=== PATIENT | male | born 1965 ===

== ENCOUNTER → 2024-08-28 | Day surgery (SDC) | payer OTHER ==
[~2024-08-28] MED LIST: DIPHENHYDRAMINE HCL 50 MG/ML VIAL 1ML IV ONE; MIDAZOLAM HCL 2 MG/2 ML VIAL IV ONE; fentaNYL CITRATE 50 MCG/ML AMPUL IV ONE
== END | disposition home or self-care (01) ==
LOC: ADM 08-22 13:15 → AMB-ENDOS 06:36
PROVIDERS: ATTEND Surgery
DX: D12.4 Benign neoplasm of descending colon (principal); K57.30 Diverticulosis of large intestine without perforation or abscess without bleeding; K63.5 Polyp of colon; K64.8 Other hemorrhoids